=== PATIENT | male | born 1950 | race Caucasian/White ===

== ENCOUNTER 2024-04-27 10:03 | Emergency (ER) | payer OTHER ==
[2024-04-27 10:09] VITALS: BP 160/77; PULSE 74; RESP 18; TEMP 98.4; BMI 25.7
[2024-04-27 12:13] LABS: HEMATOCRIT 40.9 % (35.4-49); HEMOGLOBIN 13.7 GM/dL (11.7-16.9); MCH 28.8 pg (25.7-33.7); MCHC 33.4 g/dl (32.0-35.9); MEAN CELL VOLUME 86.4 fl (80-96); MEAN PLT VOLUME 7.6 fl (7.5-11.1); PLATELET COUNT 201 10^3/uL (134-434); RBC 4.74 M/mm3 (4.00-5.60); RDW 14.5 % (11.9-15.9); WHITE BLOOD COUNT 4.5 K/mm3 (4.0-10.0)
[2024-04-27 12:19] LABS: INR 1.04 (0.83-1.09)
[2024-04-27 12:36] LABS: POTASSIUM 4.1 mmol/L (3.5-5.1)
[2024-04-27 12:38] LABS: CALCIUM 9.2 mg/dL (8.5-10.1)
[2024-04-27 12:39] LABS: ALBUMIN 3.8 g/dl (3.4-5.0); BLOOD UREA NITROGEN 18.4 mg/dL (7-18)
[2024-04-27 12:42] LABS: CREATININE 1.1 mg/dL (0.55-1.3)
[2024-04-27 12:43] LABS: TOT PROT 6.7 g/dl (6.4-8.2)
[2024-04-27 12:44] LABS: BILIRUBIN,TOTAL 0.4 mg/dL (0.2-1)
== END 2024-04-27 14:26 | disposition home or self-care (01) ==
LOC: JER 10:03
DX: H11.32 Conjunctival hemorrhage, left eye (principal)
CPT/HCPCS: 36415; 70480-TC; 80053; 85027; 85610; 86850; 86900; 86901; 99284-25